=== PATIENT | female | born 1960 | race Caucasian/White ===

== ENCOUNTER 2018-02-19 01:16 | Emergency (ER) | payer OTHER ==
[~2018-02-19] VITALS: Ht 160 cm; Wt 103.4 kg
--- NOTE | 2018-02-19 01:59 | NUR ---
BIBFAMILY C/O LLE PAIN/SWELLING/FOUL ODOR COMING FROM [facility]. PATIENT D/C FROM [facility]HAB TODAY S/P COMPOUND FX TO LLE. PT AOX3 RR EVEN AND UNLABORED. NO SOB NOTED. NAD NOTED. NO NVD AT THIS TIME. PT GOWNED AND PLACED ON MONITOR.
--- NOTE | 2018-02-19 02:00 | NUR ---
LAB AT BEDSIDE FOR BLOOD DRAW.
--- NOTE | 2018-02-19 02:04 | NUR ---
CAST ON LEFT LEG REMOVED PER DR. ARAUJO.
[2018-02-19 02:09] LABS: BASOPHILS % (AUTO) 0.2 % (0.0-2.0); EOSINOPHILS % (AUTO) 5.9 % (0.0-6.0); HEMATOCRIT 32 % (33-45); HEMOGLOBIN 10.4 g/dL (11.5-14.8); LYMPHOCYTES # (AUTO) 1.2 /CMM (0.8-4.8); LYMPHOCYTES % (AUTO) 21.6 % (20.0-44.0); MEAN CORPUSCULAR HGB CONC 32 g/dl (31.0-36.0); MEAN CORPUSCULAR VOLUME 84 fL (82-100); MONOCYTES # (AUTO) 0.6 /CMM (0.1-1.30); MONOCYTES % (AUTO) 10.3 % (2.0-12.0); NEUTROPHILS # (AUTO) 3.3 /CMM (1.8-8.9); PLATELET COUNT (AUTO) 238 /CMM (150-450); RDW COEFFICIENT OF VARIATION 15.7 (11.5-15.0); RED BLOOD CELL COUNT(AUTO) 3.84 MIL/uL (4.0-5.2); WHITE BLOOD COUNT (AUTO) 5.4 K/uL (4.3-11.0)
--- NOTE | 2018-02-19 02:10 | NUR ---
VASCULAR CHARISSA WADE PAGED.
--- NOTE | 2018-02-19 02:11 | NUR ---
RADIOLOGY AT BEDSIDE FOR ANKLE XR
[2018-02-19 02:18] LABS: CARBON DIOXIDE 28 mmol/L (21-32); CHLORIDE 103 mmol/L (98-107); GLUCOSE 117 mg/dL (74-106); POTASSIUM 4.8 mmol/L (3.5-5.1); SODIUM SERUM 138 mmol/L (136-145); UREA NITROGEN, BLOOD 19 mg/dL (7-18)
[2018-02-19 02:24] LABS: ALANINE AMINOTRANSFERASE 21 U/L (12-78); ALBUMIN 3.2 g/dL (3.4-5.0); ALKALINE PHOSPHATASE 224 U/L (46-116); ASPARTATE AMINOTRANSFERASE 15 U/L (15-37); BILIRUBIN,DIRECT 0.1 mg/dL (0.0-0.2); BILIRUBIN,TOTAL 0.5 mg/dL (0.2-1.0); LIPASE 108 U/L (73-393); TOTAL PROTEIN, SERUM 7.6 g/dL (6.4-8.2)
[2018-02-19 02:25] LABS: TROPONIN I < 0.017 ng/mL (0.00-0.056)
--- NOTE | 2018-02-19 02:45 | NUR ---
VASCULAR CHARISSA AT BEDSIDE
--- NOTE | 2018-02-19 03:09 | NUR ---
DR. ARAUJO AT BEDSIDE SPEAKING TO PT REGARDING RESULTS
--- NOTE | 2018-02-19 03:58 | NUR ---
Patient discharged to home in stable condition. Written and verbal after care instructions given. Patient verbalizes understanding of instruction. Pt mobile via personal wheel chair. pt accompanied by friend.
[2018-02-19 03:59] VITALS: BP 111/51
== END 2018-02-19 04:00 | disposition home or self-care (01) ==
LOC: ER 01:22
DX: S82.392A Other fracture of lower end of left tibia, initial encounter for closed fracture (principal); S82.832A Other fracture of upper and lower end of left fibula, initial encounter for closed fracture; L97.921 Non-pressure chronic ulcer of unspecified part of left lower leg limited to breakdown of skin; M54.9 Dorsalgia, unspecified; I10 Essential (primary) hypertension; E11.9 Type 2 diabetes mellitus without complications; Z98.890 Other specified postprocedural states; X58.XXXA Exposure to other specified factors, initial encounter; Y93.89 Activity, other specified; Y92.89 Other specified places as the place of occurrence of the external cause; Y99.8 Other external cause status
CPT/HCPCS: 36415; 73610-TC; 80048-TC; 80076-TC; 83690-TC; 84484-TC; 85025-TC; 93971-TC; A4606; A6402; Z7610